=== PATIENT | female | born 1975 | race Caucasian/White ===

== ENCOUNTER → 2016-04-03 | Outpatient (CLI) | payer MEDICAID ==
[2016-04-03 18:06] LABS: Basophils # (A) 0.1 k/uL (0-0.2); Basophils % (A) 1 %; Eosinophils # (A) 0.2 k/uL (0-0.7); Eosinophils % (A) 3 %; HCT 39.3 % (34.0-46.0); HDW 3.13; HGB 12.9 gm/dL (11.4-16.0); Luc # (Auto) 0.13; Luc % (Auto) 2; Lymphocytes # (A) 1.8 k/uL (1.0-4.8); Lymphocytes % (A) 23 %; MCH 28.1 pg (25.0-35.0); MCHC 32.8 g/dL (31.0-37.0); MCV 85.9 fL (80.0-100.0); Mean Platelet Volume 7.4; Monocytes # (A) 0.6 k/uL (0-1.0); Monocytes % (A) 7 %; Neutrophils # (A) 5.1 k/uL (1.3-7.7); Neutrophils % (A) 66 %; RBC 4.58 m/uL (3.80-5.40); RDW 13.2 % (11.5-15.5); WBC 7.8 k/uL (3.8-10.6); WBC (Perox) 8.15
== END | disposition home or self-care (01) ==
LOC: LABPAT 17:18
PROVIDERS: ATTEND Obstetrics & Gynecology
DX: Z01.812 Encounter for preprocedural laboratory examination (principal)
CPT/HCPCS: 85025

== ENCOUNTER 2016-04-23 06:09 | Day surgery (SDC) | payer MEDICAID ==
[2016-04-18 17:22] VITALS: BMI 33.5
--- NOTE | 2016-04-22 07:32 | P.HPOB ---
History of Present Illness H&P Date: 04/22/16 Chief Complaint: Complex endometrial hyperplasia/dysfunctional uterine bleeding This patient is a pleasant 40-year-old 2 para 2 female who [place] with dysfunctional uterine bleeding and at that time underwent a D&C that showed focal complex endometrial hyperplasia without atypia. Patient was placed on daily Provera in December after her initial D&C has been taking that daily and now presents for repeat D&C for sampling. Patient still has menstrual cycles on the Provera and also bleeds in between. Review of Systems Constitutional: Denies chills, Denies fever Cardiovascular: Denies chest pain, Denies shortness of breath Respiratory: Denies cough Gastrointestinal: Denies abdominal pain, Denies diarrhea, Denies nausea, Denies vomiting Genitourinary: Reports as per HPI, Reports abnormal vaginal bleeding Menstruation: Reports as per HPI Musculoskeletal: Denies myalgias Integumentary: Denies pruritus, Denies rash Neurological: Denies numbness, Denies weakness Past Medical History Past Medical History: No Reported History Additional Past Medical History / Comment(s): REPEAT D & C FROM 3 MONTHS AGO, patient also has a history of kidney stones. History of Any Multi-Drug Resistant Organisms: None Reported Past Surgical History: Section, Cholecystectomy, Orthopedic Surgery ( Patient has had hand surgery.) Additional Past Surgical History / Comment(s): D & C Past Anesthesia/Blood Transfusion Reactions: Previous Problems w/ Anesthesia Additional Past Anesthesia/Blood Transfusion Reaction / Comment(s): BLOOD PRESSURE TENDS TO RUN LOW AFTER ANESTHESIA Past Psychological History: No Psychological Hx Reported Smoking Status: Former smoker Past Alcohol Use History: Occasional Additional Past Alcohol Use History / Comment(s): QUIT SMOKING OVER 25 YRS AGO Past Drug Use History: None Reported - Past Family History Mother Family Medical History: No Reported History Medications and Allergies Home Medications Medication Instructions Recorded Confirmed Type Medroxyprogesterone Acetate 10 mg PO DAILY 04/18/16 04/18/16 History [Provera] Allergies Allergy/AdvReac Type Severity Reaction Status Date / Time Iodinated Contrast Media - Allergy Rash/Hives Verified 04/18/16 17:17 Oral and [Iodinated Contrast Media - IV Dye] Penicillins Allergy Rash/Hives Verified 04/18/16 17:17 Sulfa (Sulfonamide Allergy Rash/Hives Verified 04/18/16 17:17 Antibiotics) Exam - OBG Physical Exam Abdomen: bowel sounds normal, no diffuse tenderness, no bruit present, no guarding noted, no hepatomegaly, no splenomegaly, no mass Vulva: both: normal Vagina: normal moisture, no discharge Cervix: no lesion, no discharge Uterus: normal size, normal contour Adnexa: both: normal Results Pathology from her previous D&C showed focal complex hyperplasia without atypia. Assessment and Plan (1) Complex endometrial hyperplasia without atypia Narrative/Plan: This is a pleasant 40-year-old 2 para 2 female with history of focal complex endometrial hyperplasia without atypia who is been on progestin therapy for approximately 12 weeks' who now presents for repeat D&C for endometrial sampling. Plan is hysteroscopy and D&C. Patient does understand the surgery and risks including risks of infection, bleeding, possible uterine perforation. All the patient's questions are answered and a written consent is obtained. Status: Chronic
[~2016-04-23 06:09] MED LIST: DEXAMETHASONE SOD PHOSPHATE 10 MG/ML 1 ML VIAL IV ONE; HYDROmorphone 1 MG/ML 1 ML SYRINGE IVP PRN; LACTATED RINGERS 1,000 ML IV SCH; LIDOCAINE 1% 20 ML VIAL (10MG/ML) FOR IV START INTRADERMA PRN; MIDAZOLAM 2 MG/2 ML VIAL IV PRN; ONDANSETRON 4 MG/2 ML VIAL IVP ONE; Pre Op ABX Message 1 EACH MISC MISCELLANE ONE; SCOPOLAMINE 1.5MG/72HR PATCH TRANSDERM ONE
[2016-04-23] MEDS ORDERED: LACTATED RINGERS 1,000 ML IV ONE ×2 (06:21→08:48)
[2016-04-23] MEDS ORDERED: LIDOCAINE 1% 20 ML VIAL (10MG/ML) FOR IV START INTRADERMA ONE (06:24)
[2016-04-23] MEDS ORDERED: PROPOFOL 10 MG/ML 20 ML VIAL IV ONE (06:59)
[2016-04-23] MEDS ORDERED: fentaNYL (PF) 50 MCG/ML 2 ML AMP ONE (06:59)
[2016-04-23] MEDS ORDERED: SUCCINYLCHOLINE CHLORIDE VIAL 200 MG/10 ML VIAL IV ONE (06:59)
[2016-04-23] MEDS ORDERED: MIDAZOLAM 2 MG/2 ML VIAL ONE (06:59)
[2016-04-23] MEDS ORDERED: LIDOCAINE 1% INJ 10MG/ML (20 ML MDV) ONE (06:59)
--- NOTE | 2016-04-23 07:28 | P.OP ---
Date of Procedure: 04/23/16 Preoperative Diagnosis: Complex endometrial hyperplasia without atypia Procedure(s) Performed: #1: Hysteroscopy. #2: Dilation and curettage. Anesthesia: GETA Surgeon: Ed Ch Estimated Blood Loss (ml): 10 IV fluids (ml): 200 Urine output (ml): 15 Pathology: other Condition: stable (Uterine curettings) Disposition: PACU Indications for Procedure: Please see dictated H&P for intimate details of this patient's admission. Brief summary is a pleasant 40-year-old 2 para 2 female with known complex endometrial hyperplasia without atypia who is status post progestin therapy now presenting for repeat sampling. Patient does understand the surgery and risks including risks of infection, bleeding, possible uterine perforation. All the patient's questions are answered and a written consent is obtained. Operative Findings: This patient had a normal-appearing endometrial cavity however somewhat limited due to the patient's menstrual cycle. Description of Procedure: This patient is taken to the operating room where she is laid in the supine position. She subsequent undergoes general endotracheal anesthesia without incident. With an adequate level of anesthesia was placed in dorsal lithotomy position. She has a vaginal perineal prep and drape. His emanation anesthesia shows a mid position uterus of normal size. I placed a weighted speculum in the posterior vagina. The bladder is drained for 10 mL of clear urine. I then place an Allis clamp on the anterior lip of the cervix. The uterine cavity is then sounded to 8.5 cm. With this done gentle dilation is done of the endocervix to allow the hysteroscope easily and the uterine cavity. Hysteroscopy is performed with saline solution and the uterine cavity is visualized. It is somewhat limited due to the patient being on her menstrual cycle, however I did not see any evidence of any polyps fibroids or other growths. With this done the hysteroscope was then removed. Cervix is dilated more to allow a curette easily and uterine cavity a vigorous but gentle sharp curettage of all 4 quadrants is done. Polyp forceps are placed as well. A final pass of the curet is done and adequate sampling has been obtained. Procedure is terminated. The Allis clamp was removed weighted speculum removed. There is minimal bleeding. Patient is awakened from anesthesia and taken to the recovery room in satisfactory condition. All counts are correct 3. There are no complications.
[2016-04-23 07:44] VITALS: RESP 16; TEMP 97.8
[2016-04-23] MEDS ORDERED: KETOROLAC 30 MG/ML 1 ML VIAL IVP ONE (07:47)
[2016-04-23 10:23] VITALS: BP 96/61; PULSE 72
== END 2016-04-23 10:26 | disposition home or self-care (01) ==
LOC: OR 06:09
PROVIDERS: ATTEND Obstetrics & Gynecology
DX: N85.01 Benign endometrial hyperplasia (principal); N85.8 Other specified noninflammatory disorders of uterus; Z87.891 Personal history of nicotine dependence; Z79.3 Long term (current) use of hormonal contraceptives; Z88.2 Allergy status to sulfonamides; Z91.041 Radiographic dye allergy status
CPT/HCPCS: 81025; 88305; 58558; J2250; J0330; J1100; J2405; J2001; J3010; J1885; J2704

== ENCOUNTER → 2017-05-02 | Outpatient (CLI) | payer MEDICAID ==
--- NOTE | 2017-05-02 08:12 | CT ---
EXAMINATION TYPE: CT abdomen pelvis w con DATE OF EXAM: 05/02/2017 COMPARISON: 11/30/2012 HISTORY: RUQ pain CT DLP: 1374 mGycm Automated exposure control for dose reduction was used. CONTRAST: CT scan of the abdomen pelvis is performed with IV Contrast, patient injected with 100 mL of Omnipaqu e 300. FINDINGS- LUNG BASES- No significant abnormality is appreciated. LIVER/GB-previous cholecystectomy clips are noted. PANCREAS- No gross abnormality is seen. SPLEEN- No gross abnormality is seen. ADRENALS- No gross abnormality is seen. KIDNEYS/BLADDER- no hydronephrosis nephrolithiasis or renal mass. BOWEL- no bowel dilatation. Normal appendix. LYMPH NODES- No greater than 1cm abdominal or pelvic lymph nodes are appreciated. OSSEOUS STRUCTURES-hypertrophic changes of the spine noted particularly at L5-S1. OTHER- endometrium is prominent in the bilateral hypodensities in the adnexa with the largest measur ing approximately 2.7 cm IMPRESSION- 1. Thickened endometrium with bilateral adnexal cysts greater on the right correlate for ovarian cyst s. Pelvic ultrasound could be obtained. Fullness to the endocervical canal and thickening of the endo metrium could be correlated with ultrasound.
== END | disposition home or self-care (01) ==
LOC: RADCTMAIN 06:52
PROVIDERS: ATTEND Family Medicine
DX: N83.8 Other noninflammatory disorders of ovary, fallopian tube and broad ligament (principal); R93.8 Abnormal findings on diagnostic imaging of other specified body structures; R11.2 Nausea with vomiting, unspecified; Z87.442 Personal history of urinary calculi
CPT/HCPCS: 74177; Q9967

== ENCOUNTER → 2018-04-08 | Outpatient (CLI) | payer MEDICAID ==
--- NOTE | 2018-04-08 08:03 | US ---
EXAMINATION TYPE: US transvaginal DATE OF EXAM: 04/08/2018 COMPARISON: 12/26/2015 CLINICAL HISTORY: N93.8 Other specified abnormal uterine and vaginal. abn bleeding TECHNIQUE: Transvaginal (TV). Date of LMP: 03/18/2018, EXAM MEASUREMENTS: Uterus: 8.4 x 6.4 x 4.9 cm Endometrial Stripe: 1.3 cm Right Ovary: 2.9 x 1.5 x 1.7 cm Left Ovary: 3.9 x 1.5 x 1.7 cm 1. Uterus: Anteverted Appears heterogenous 2. Endometrium: appears within normal range for cycle phase 3. Right Ovary: wnl 4. Left Ovary: wnl 5. Bilateral Adnexa: wnl 6. Posterior cul-de-sac: free fluid seen Cervix- nabothian cyst IMPRESSION: 1. Nonspecific heterogenous uterine myometrium. 2. Small amount of free fluid identified.
== END | disposition home or self-care (01) ==
LOC: RADUSWWP 07:07
PROVIDERS: ATTEND Obstetrics & Gynecology
DX: N93.8 Other specified abnormal uterine and vaginal bleeding (principal)
CPT/HCPCS: 76830

== ENCOUNTER → 2018-08-29 | Outpatient (CLI) | payer MEDICAID ==
[2018-08-29 10:52] LABS: Basophils % (A) 1 %; Eosinophils # (A) 0.1 k/uL (0-0.7); Eosinophils % (A) 3 %; HCT 34.6 % (34.0-46.0); HGB 11.2 gm/dL (11.4-16.0); Hypochromasia Moderate; Lymphocytes # (A) 1.2 k/uL (1.0-4.8); Lymphocytes % (A) 29 %; MCH 26.4 pg (25.0-35.0); MCHC 32.3 g/dL (31.0-37.0); MCV 81.8 fL (80.0-100.0); Mean Platelet Volume 8.3; Monocytes # (A) 0.2 k/uL (0-1.0); Monocytes % (A) 4 %; Neutrophils # (A) 2.6 k/uL (1.3-7.7); Neutrophils % (A) 61 %; Platelet Count 217 k/uL (150-450); RBC 4.23 m/uL (3.80-5.40); RDW 14.9 % (11.5-15.5); WBC 4.2 k/uL (3.8-10.6)
[2018-08-29 11:00] LABS: African American GFR (CKD) >90 (>60 ml/min/1.73 sqM); Anion Gap 7 mmol/L; Blood Urea Nitrogen 14 mg/dL (7-17); Calcium 9.3 mg/dL (8.4-10.2); Carbon Dioxide 28 mmol/L (22-30); Chloride 106 mmol/L (98-107); Glucose 82 mg/dL (74-99); Potassium 4.7 mmol/L (3.5-5.1); Sodium 141 mmol/L (137-145)
== END | disposition home or self-care (01) ==
LOC: LABPAT 10:14
PROVIDERS: ATTEND Obstetrics & Gynecology
DX: Z01.812 Encounter for preprocedural laboratory examination (principal)
CPT/HCPCS: 36415; 80048; 85025; 86850; 86900; 86901

== ENCOUNTER 2018-09-03 06:52 | Day surgery (SDC) | payer MEDICAID ==
--- NOTE | 2018-09-02 16:34 | P.HPOB ---
History of Present Illness H&P Date: 09/02/18 Chief Complaint: Endometrial hyperplasia Britt is a 42-year-old female with endometrial hyperplasia without atypia diagnosed by in vitro biopsy. She is scheduled for a laparoscopic assisted vaginal hysterectomy with da Linda assisted with removal of fallopian tubes. Risks/benefits/alternatives to this procedure were discussed with the patient in detail and all questions were answered for the patient prior to proceeding to the operating room. We did discuss hostility of progestin therapy but this is failed in the past. She is a patient normally of Dr. Santiago. On physical exam vital signs are stable and afebrile. Heart regular, lungs clear, extremities without pain. Abdomen soft and nontender. Positive bowel sounds are noted. Pelvic exam is otherwise unremarkable. Assessment endometrial hyperplasia. Plan da Linda assisted robotic hysterectomy with salpingectomy bilaterally and cystoscopy. Possible JERALD possible BSO. Past Medical History Past Medical History: No Reported History Additional Past Medical History / Comment(s): history of kidney stones History of Any Multi-Drug Resistant Organisms: None Reported Past Surgical History: Section, Cholecystectomy, Orthopedic Surgery Additional Past Surgical History / Comment(s): D & C, hand surg. Past Anesthesia/Blood Transfusion Reactions: Previous Problems w/ Anesthesia Additional Past Anesthesia/Blood Transfusion Reaction / Comment(s): BLOOD PRESSURE TENDS TO RUN LOW AFTER ANESTHESIA Smoking Status: Former smoker - Past Family History Mother Family Medical History: No Reported History Medications and Allergies Home Medications Medication Instructions Recorded Confirmed Type Multivitamins, Thera [Multivitamin 1 tab PO DAILY 08/26/18 08/26/18 History (formulary)] Allergies Allergy/AdvReac Type Severity Reaction Status Date / Time Iodinated Contrast- Oral and Allergy Rash/Hives Verified 08/26/18 12:21 IV Dye [Iodinated Contrast Media - IV Dye] Penicillins Allergy Rash/Hives Verified 08/26/18 12:21 Sulfa (Sulfonamide Allergy Rash/Hives Verified 08/26/18 12:21 Antibiotics) Exam Osteopathic Statement: *. No significant issues noted on an osteopathic structural exam other than those noted in the History and Physical/Consult.
[~2018-09-03 06:52] MED LIST changes: -HYDROmorphone 1 MG/ML 1 ML SYRINGE IVP PRN; -LACTATED RINGERS 1,000 ML IV SCH; -MIDAZOLAM 2 MG/2 ML VIAL IV PRN; +ONDANSETRON 4 MG/2 ML VIAL IVP PRN; -Pre Op ABX Message 1 EACH MISC MISCELLANE ONE; +ceFAZolin IN SWFI 2 GM/20 ML SYRINGE IVP ONE
[2018-09-03] MEDS: LACTATED RINGERS 1,000 ML IV SCH ×2 (07:26→14:50)
[2018-09-03] MEDS ORDERED: LACTATED RINGERS 1,000 ML IV ONE (07:27)
[2018-09-03] MEDS ORDERED: ROCURONIUM BROMIDE 10 MG/ML 10 ML VIAL IV ONE (07:41)
[2018-09-03] MEDS ORDERED: PROPOFOL 10 MG/ML 20 ML VIAL IV ONE (07:41)
[2018-09-03] MEDS ORDERED: ePHEDrine SULFATE/0.9% NACL/PF 50 MG/5 ML SYRINGE IV ONE (07:41)
[2018-09-03] MEDS ORDERED: MIDAZOLAM 2 MG/2 ML VIAL ONE (07:41)
[2018-09-03] MEDS ORDERED: NEOSTIGMINE 1 MG/ML 10 ML VIAL ONE (07:41)
[2018-09-03] MEDS ORDERED: LIDOCAINE 1% INJ 10MG/ML (20 ML MDV) ONE (07:41)
[2018-09-03] MEDS ORDERED: fentaNYL (PF) 50 MCG/ML 2 ML AMP ONE (07:41)
[2018-09-03] MEDS ORDERED: GLYCOPYRROLATE 0.2 MG/ML 2 ML VIAL ONE (07:41)
[2018-09-03] MEDS ORDERED: BUPIVACAINE (PF) 0.25% 30 ML VIAL SQ ONE (07:45)
[2018-09-03] MEDS ORDERED: SIMETHICONE 80 MG CHEWABLE PO PRN (09:19)
[2018-09-03] MEDS ORDERED: ONDANSETRON 4 MG/2 ML VIAL IVP PRN (09:19)
[2018-09-03] MEDS ORDERED: HYDROcodone/APAP 7.5-325MG 1 EACH TAB PO PRN (09:22)
--- NOTE | 2018-09-03 09:28 | P.OP ---
Date of Procedure: 09/03/18 Preoperative Diagnosis: Endometrial hyperplasia Postoperative Diagnosis: Same Procedure(s) Performed: Robotic-assisted laparoscopic hysterectomy with bilateral salpingectomy Anesthesia: NEIL Surgeon: Gabe Mills Card Grinder Helper #1: Zina Peck Estimated Blood Loss (ml): 50 IV fluids (ml): 700 Urine output (ml): 450 Pathology: other (Uterus, cervix, bilateral fallopian tubes) Condition: stable Disposition: floor Operative Findings: Grossly normal pelvic anatomy Description of Procedure: Patient was taken to the operating suite where a general anesthetic was found be adequate. She was prepped and draped in the normal sterile fashion and placed in the dorsal lithotomy position. Initially a weighted speculum was inserted into the vagina and the anterior lip of the cervix was identified and grasped with single-tooth tenaculum. Cervix was then dilated and sounded to 10 cm. Size was measured to 3 cm. Yamile manipulator was then inserted without difficulty with sutures placed at 3 and 9. Other instruments removed and Thompson catheter was placed. Closure then changed and attention was turned to the abdominal portion of the procedure. Initially a 5 mm skin incision was made in the midline 1 cm above the umbilicus through a 5 mm incision. This trocar was placed under direct visualization with an optical trocar and sleeve. Once peritoneal placement was assured gas was allowed to fully insufflate the abdomen and patient was placed then in a very steep Trendelenburg position. 2 lateral ports were then placed 10 cm from the umbilicus laterally on the right and left side both under direct visualization. Due to placed through 8 mm skin incisions. A fourth port and sleeve were then inserted between the left lateral and the port through a 1 cm incision. Robot was then brought in and docked and a scissor was placed in the one arm and [place] grasper in the 2 arm. Uterus was then elevated and I did go to the console observations pelvis were noted uterus was then tipped to the right side and the left fallopian tube complex was elevated and the mesosalpinx was cauterized and transected to just before the round ligament area. Utero-ovarian ligament was then identified cauterized and transected. Round ligament was then identified cauterized and transected and the anterior posterior leaves were developed from the broad ligament. Once down to level bladder bladder was undermined and tissue was dissected across face uterus by undermining with a [place] incising the vesicouterine peritoneum with the scissor. Once this was completed bladder was bluntly and sharply dissected out of the operative field. Left sided uterine vascular was then cauterized. Attention was then turned the right side of the uterus, and in a similar fashion was developed. Once this was completed balloon was blown up in the Yamile and an anterior colpotomy was made. Once this was accomplished the blue couple was followed around circumferentially has 360 degrees cheating ahead when necessary to maintain excellent hemostasis. Once cup was fully developed uterus was brought into the vagina to maintain pneumoperitoneum and pedicles were verified hemostatic. Instruments were then exchanged for a make suture cut and Ty grasper and using V lock suture the vaginal cuff was reapproximated in running fashion. Once this was completed pelvis was thoroughly irrigated. No bleeding is noted from the pedicles therefore instruments removed and gas allowed to expel from the abdomen. At this point robot was undocked and trochars removed and 5 deep breaths were provided during this process. I did at this point do a cystoscopy with excellent flow noted from both ureteral jets and Dr. Peck close the incision subcuticularly. Quarter percent Marcaine was then injected around these incisions. Thompson catheter was then replaced. Sponge, lap, needle counts were all correct 2. Patient was then taken to the recovery room in stable and satisfactory condition.
[2018-09-03] MEDS: HYDROmorphone 0.5 MG/0.5 ML SYRINGE IVP PRN ×4 (09:35→10:10)
[2018-09-03] MEDS: KETOROLAC 30 MG/ML 1 ML VIAL IVP SCH ×4 (09:38→20:46)
[2018-09-03 11:21] VITALS: BMI 22.8
[2018-09-03] MEDS: SENNOSIDES-DOCUSATE SODIUM 1 EACH TAB PO SCH (20:46)
[2018-09-04] MEDS: LACTATED RINGERS 1,000 ML IV SCH (01:49)
[2018-09-04] MEDS: KETOROLAC 30 MG/ML 1 ML VIAL IVP SCH ×2 (03:47→08:59)
[2018-09-04 04:50] VITALS: BP 82/41
[2018-09-04 07:15] LABS: Basophils % (A) 0 %; Eosinophils # (A) 0.1 k/uL (0-0.7); Eosinophils % (A) 1 %; HCT 31.6 % (34.0-46.0); Hypochromasia Slight; Lymphocytes # (A) 1.8 k/uL (1.0-4.8); Lymphocytes % (A) 27 %; MCH 25.8 pg (25.0-35.0); MCHC 31.6 g/dL (31.0-37.0); MCV 81.6 fL (80.0-100.0); Mean Platelet Volume 7.7; Monocytes # (A) 0.3 k/uL (0-1.0); Monocytes % (A) 4 %; Neutrophils # (A) 4.5 k/uL (1.3-7.7); Neutrophils % (A) 67 %; Platelet Count 191 k/uL (150-450); RBC 3.87 m/uL (3.80-5.40); RDW 14.7 % (11.5-15.5); WBC 6.7 k/uL (3.8-10.6)
[2018-09-04 08:43] VITALS: PULSE 66; RESP 18; TEMP 98.4
--- NOTE | 2018-09-04 08:54 | P.DS ---
Providers Expected date of discharge: 09/04/18 Attending physician: Gabe Mills Primary care physician: Luciano Copley Hospital Course: Britt is doing very well postop day 1. She's angling voiding tolerating her diet. She is passing flatus. She is voiding without difficulty. Vital signs are stable and afebrile. Heart regular, lungs clear, extremities are without pain. Abdomen is soft incisions are intact. Assessment postop day 1. Plan discharged home follow up with me in 2 weeks. Prescriptions for [place] and Motrin are provided and discharge instructions were thoroughly reviewed. All questions are answered for her prior to discharge. She is stable for discharge this time. Patient Condition at Discharge: Good Plan - Discharge Summary Discharge Rx Participant: Yes New Discharge Prescriptions: New Ibuprofen [Motrin] 600 mg PO Q6HR PRN #30 tab PRN Reason: Pain HYDROcodone/APAP 5-325MG [[place] 5-325] 1 tab PO Q4HR PRN #30 tab PRN Reason: Pain No Action Multivitamins, Thera [Multivitamin (formulary)] 1 tab PO DAILY Discharge Medication List Multivitamins, Thera [Multivitamin (formulary)] 1 tab PO DAILY 08/26/18 [History] HYDROcodone/APAP 5-325MG [[place] 5-325] 1 tab PO Q4HR PRN #30 tab 09/04/18 [Rx] Ibuprofen [Motrin] 600 mg PO Q6HR PRN #30 tab 09/04/18 [Rx] Follow up Appointment(s)/Referral(s): Gabe Mills DO [Doctor of Osteopathic Medicine] - 2 Weeks Patient Instructions/Handouts: Ketorolac (By injection), Hysterectomy (DC) Activity/Diet/Wound Care/Special Instructions: No heavy lifting, limit stairs and driving, and pelvic rest. If any high temperatures, heavy bleeding, or severe pain call my office Discharge Disposition: HOME SELF-CARE
[2018-09-04] MEDS: SENNOSIDES-DOCUSATE SODIUM 1 EACH TAB PO SCH (09:00)
== END 2018-09-04 11:08 | disposition home or self-care (01) ==
LOC: OR 06:52 → 6PED 09:09 → OR 09-04 11:08
PROVIDERS: ATTEND Obstetrics & Gynecology
DX: N85.00 Endometrial hyperplasia, unspecified (principal); Z87.442 Personal history of urinary calculi; Z90.49 Acquired absence of other specified parts of digestive tract; Z87.891 Personal history of nicotine dependence; Z88.0 Allergy status to penicillin; Z88.2 Allergy status to sulfonamides; Z91.041 Radiographic dye allergy status
CPT/HCPCS: 58571; S2900; 81025; 85025; 86850; 86900; 86901; 88309